=== PATIENT | female | born 1955 | race African-American/Black ===

== ENCOUNTER 2017-04-23 09:26 | Inpatient (IN) | payer BC ==
[2017-04-23] MEDS ORDERED: MORPHINE SULFATE INJ 4 MG IVP ONE ×3 (09:30→12:14)
[2017-04-23] MEDS ORDERED: MORPHINE SULFATE INJ 4 MG ONE ×3 (09:35→12:12)
[2017-04-23 09:37] VITALS: BMI 23.1
[2017-04-23] MEDS ORDERED: ZOFRAN INJ 4 MG VIAL ONE (09:44)
[2017-04-23] MEDS ORDERED: ZOFRAN INJ 4 MG VIAL IVP ONE (09:45)
[2017-04-23 09:51] LABS: BASOPHILS # (AUTO) 0.1 X10^3/uL (0.0-0.1); BASOPHILS % (AUTO) 2.8 % (0.2-1.0); HEMOGLOBIN 12.1 g/dL (12.0-16.0); LYMPHOCYTES # (AUTO) 2.2 X10^3/uL (1.3-2.9); LYMPHOCYTES % (AUTO) 65.3 % (21.0-51.0); MEAN CORPUSCULAR HEMOGLOBIN 27.9 pg (27.0-34.0); MEAN CORPUSCULAR HGB CONC 33.5 g/dL (33.0-35.0); MEAN CORPUSCULAR VOLUME 83.4 fL (80.0-100.0); MONOCYTES # (AUTO) 0.2 x10^3/uL (0.3-0.8); MONOCYTES % (AUTO) 6.8 % (0.0-13.0); NEUTROPHILS # (AUTO) 0.8 x10^3/uL (2.2-4.8); NEUTROPHILS % (AUTO) 24.1 % (42.0-75.0); PLATELET COUNT 280 X10^3/uL (150.0-450.0); RED BLOOD COUNT 4.32 X10^6/uL (3.5-5.4); WHITE BLOOD COUNT 3.3 X10^3/uL (3.6-10.0)
--- NOTE | 2017-04-23 09:56 | DR.CP ---
HPI - Time Seen Time seen: 09:30 - PCP Primary Care Physician: JOSE - Complaint Chief Complaint Doctor Comments: Patient admits to midsternal chest pain radiating to back. Denies diaphroesis. She has taken four nitroglyerines w/o relief. She had cardiac surgery (stents) x1 in and . She admits to costochrondritis for for several years. Chief Complaint:: CHEST PAIN FOR 45MIN HURTING IN CHEST AND ARMS ARE TINGLING - Source History Provided: Patient - Mode of Arrival Mode of Arrival: Ambulatory - Timing Onset of Chief Complaint: 04/23/17 PMH - PMH Past Medical History: Yes Past Medical History Comment: HEART ATTACH Past Surgical History: Yes Surgical History: Other - Family History History of Family Medical Conditions: Yes Family Medical History: Diabetes Mellitus, Cancer, [place], Coronary Artery Disease, Hypertension - Social History Does patient currently use any type of tobacco product: No Have you used tobacco products in the last 12 months: No Type of Tobacco Use: None Does any household member use tobacco: No Alcohol Use: None Do you use any recreational Drugs:: No Lives With: Family Lives Where: Home - infectious screening In the last 2 months have you had wt loss of >10#?: NO Have you had fever, night sweats or hemotysis?: No Have you traveled outside the country in the last 6 months?: No Isolation: Standard ROS - Review of Systems Constitutional: negative: Diaphoresis Eyes: No Symptoms Reported ENTM: No Symptoms Reported Respiratoy: No Symptoms Reported Cardiovascular: See HPI, Chest Pain Gastrointestinal/Abdominal: No Symptoms Reported Genitourinary: No Symptoms Reported Neurological: No Symptoms Reported Musculoskeletal: See HPI, Other (costochrondritis) Integumentary: No Symptoms Reported Hematologic/Lymphatic: No Symptoms Reported Endocrine: No Symptoms Reported Psychiatric: No Symptoms Reported All Other Systems: Reviewed and Negative PE - Vitals Vitals: Temperature 98 F Pulse Rate [Left Brachial] 63 Pulse Rate 60 Respiratory Rate 20 Blood Pressure [Right Arm] 117/68 Blood Pressure [Left Arm] 155/91 Blood Pressure 132/77 O2 Sat by Pulse Oximetry 100 - General Limitations: No Limitations General Appearance: Alert, In Distress, Other (She sharp,pleuretic and positional chest pain) - Head Head Exam: Normal Inspection, Atraumatic - Eyes Eye exam: Normal Appearance, PERRL, EOMI - ENT ENT Exam: Normal Exam - Chest Chest Inspection: Normal Inspection, Symmetric Chest Wall Rise - Respiratory Respiratory Exam: Normal Lung Sounds Bilat Respiratory Exam: Bilateral Clear to Auscultation - Cardiovascular Cardiovascular Exam: Regular Rate, Normal Rhythm Pulse: Normal Edema: negative: Normal - Abdominal Exam Abdominal Exam: Normal Inspection Abdominal Tenderness: negative: RUQ, RLQ, LUQ, LLQ, Epigastrium, Suprapubic, Diffuse, Mild, Moderate, Severe, Other - Extremities Extremities Exam: Normal Inspection, Full ROM - Back Back Exam: Normal Inspection, Full ROM - Neurologic Neurological Exam: Alert, Oriented X3, CN II-XII Intact - Psychiatric Psychiatric Exam: Normal Affect, Normal Mood - Skin Skin Exam: Warm, Dry, Intact Course - Reevaluation 1st: Unchanged - Consultation Called: 15:40 (Admit Chest Pain R/O) ROR - Labs Reviewed Result Diagrams: 04/23/17 09:40 04/23/17 10:02 Laboratory: WBC 3.3 X10^3/uL (3.6-10.0) L 04/23/17 09:40 RBC 4.32 X10^6/uL (3.5-5.4) 04/23/17 09:40 Hgb 12.1 g/dL (12.0-16.0) 04/23/17 09:40 Hct 36.0 % (36.0-47.0) 04/23/17 09:40 MCV 83.4 fL (80.0-100.0) 04/23/17 09:40 MCH 27.9 pg (27.0-34.0) 04/23/17 09:40 MCHC 33.5 g/dL (33.0-35.0) 04/23/17 09:40 RDW 14.0 % (11.6-16.5) 04/23/17 09:40 Plt Count 280 X10^3/uL (150.0-450.0) 04/23/17 09:40 Plt Count Comment Adequate (ADEQUATE) 04/23/17 09:40 MPV 9.0 fL (7.4-11.0) 04/23/17 09:40 Neut % 24.1 % (42.0-75.0) L 04/23/17 09:40 Lymph % 65.3 % (21.0-51.0) H 04/23/17 09:40 Nye % 6.8 % (0.0-13.0) 04/23/17 09:40 Eos % 1.0 % (0.9-2.9) 04/23/17 09:40 Baso % 2.8 % (0.2-1.0) H 04/23/17 09:40 Neut # 0.8 x10^3/uL (2.2-4.8) L 04/23/17 09:40 Lymph # 2.2 X10^3/uL (1.3-2.9) 04/23/17 09:40 Nye # 0.2 x10^3/uL (0.3-0.8) L 04/23/17 09:40 Eos # 0.0 x10^3/uL (0.0-0.2) 04/23/17 09:40 Baso # 0.1 X10^3/uL (0.0-0.1) 04/23/17 09:40 Absolute Nucleated RBC 0.2 /100WBC 04/23/17 09:40 Total Counted 100 04/23/17 09:40 Neutrophils % (Manual) 30 % (39-76) L 04/23/17 09:40 Lymphocytes % (Manual) 59 % (13-43) H 04/23/17 09:40 Monocytes % (Manual) 5 % (4-9) 04/23/17 09:40 Eosinophils % (Manual) 1 % (0-6) 04/23/17 09:40 Atypical Lymphocytes 5 04/23/17 09:40 Plt Morphology Comment Normal (NORMAL) 04/23/17 09:40 RBC Morphology Normal (NORMAL) 04/23/17 09:40 INR Target Range - 04/23/17 10:02 INR 0.97 (0.8-1.3) 04/23/17 10:02 PTT 24.1 SECONDS (22.9-36.5) 04/23/17 10:02 PTT Comment - 04/23/17 10:02 Sodium 144 mmol/L (136-145) 04/23/17 10:02 Corrected Sodium TNP 04/23/17 10:02 Potassium 3.9 mmol/L (3.5-5.1) 04/23/17 10:02 Chloride 107 mmol/L (98-107) 04/23/17 10:02 Carbon Dioxide 29.5 mmol/L (21-32) 04/23/17 10:02 BUN 9 mg/dL (7-18) 04/23/17 10:02 Creatinine 0.80 mg/dL (0.55-1.02) 04/23/17 10:02 Est GFR (MDRD) Af Amer > 60 (>60) 04/23/17 10:02 Est GFR (MDRD) Non-Af > 60 (>60) 04/23/17 10:02 Glucose 108 mg/dL (65-99) H 04/23/17 10:02 Calcium 8.8 mg/dL (8.5-10.1) 04/23/17 10:02 Corrected Calcium TNP 04/23/17 10:02 Phosphorus 2.4 mg/dL (2.6-4.7) L 04/23/17 10:02 Magnesium 1.7 mg/dL (1.7-2.9) 04/23/17 10:02 Total Bilirubin 0.20 mg/dL (0.2-1.0) 04/23/17 10:02 AST 22 Units/L (15-37) 04/23/17 10:02 ALT 23 Units/L (12-78) 04/23/17 10:02 Alkaline Phosphatase 56 Units/L (46-116) 04/23/17 10:02 Creatine Kinase 68 Units/L (26-192) 04/23/17 10:02 CK-MB (CK-2) < 1.0 ng/mL (0-4.0) 04/23/17 10:02 CK/CKMB % Calc 1.5 % (<4) 04/23/17 10:02 Troponin I < 0.02 ng/mL (0-1.5) 04/23/17 10:02 Total Protein 7.4 g/dL (6.4-8.2) 04/23/17 10:02 Albumin 3.4 g/dL (3.4-5.0) 04/23/17 10:02 Globulin 4.0 g/dL (2.5-4.5) 04/23/17 10:02 Albumin/Globulin Ratio 0.9 Ratio (1.1-2.1) L 04/23/17 10:02 Amylase 135 Units/L (25-115) H 04/23/17 10:02 Lipase 412 Units/L (73-393) H 04/23/17 10:02 - XRAY XRAY Interpreted by: Radiologist (Chest: stable chest w/o abnormality CT abdomen pelvis w/contrast:Examination of the lung bases demonstrates a 1.05cm anterior right lowerr lobe pulmonary nodule for which further evaluation with chest CT is recommended. If this proves to be a solitary pulmonary nodule then PET-CT will be required in order to exclude neoplasm. The lift lung base is clear. Liver, spleen,adrenal glands and pancreas are within normal limits. No opaque stones are visible within the gallbladder. The kidneys are unobstructed and without stones or masses. No ureteral calculi are identified. Mild calcific atherosclerotic change is present in a nondilated abdominal aorta. The appendix is normal. There are no findings suggestive of diverticulitis or colitis. No enlarged intraperitoneal or retroperitoneal lymphadenopathy is identified. Examination of the pelvic demonstrated no evidence for pelvic masses, pelvic fluid, or pelvic lymphadenopathy. No bladder abnormality is identified. No significant skeletal abnormality is identified. Impression: 1.05 cm right basilar pulmonary nodule for which chest CT is recommended. If this proves to be a solitary pulmonary nodule then PET-CT will be indicated in order to exclude neoplasm.) - Diagnosis Discharge Problem: Chest pain Qualifiers: Chest pain type: unspecified Qualified Code(s): R07.9 - Chest pain, unspecified - Discharge Plan Condition: Stable - Follow ups/Referrals Follow ups/Referrals: Manish Guerrero [Primary Care Provider] - 3 days - Instructions
[2017-04-23 10:21] LABS: MAGNESIUM 1.7 mg/dL (1.7-2.9); PHOSPHORUS 2.4 mg/dL (2.6-4.7)
--- NOTE | 2017-04-23 10:21 | RAD ---
HISTORY: Pain Study: Portable chess Comparison: 01/21/2015 Findings: The heart is normal. The pulmonary vessels are normal. No consolidation or effusion is seen. The bon es are intact. IMPRESSION: Stable chest with no acute abnormality seen. Reported By:
[2017-04-23 10:28] LABS: PLATELET MORPHOLOGY COMMENT NORMAL (NORMAL)
[2017-04-23 10:29] LABS: BLOOD UREA NITROGEN 9 mg/dL (7-18); CALCIUM 8.8 mg/dL (8.5-10.1); CARBON DIOXIDE 29.5 mmol/L (21-32); CHLORIDE 107 mmol/L (98-107); GLUCOSE 108 mg/dL (65-99); SODIUM 144 mmol/L (136-145); TROPONIN I < 0.02 ng/mL (0-1.5); eGFR BLACK RACES > 60 (>60); eGFR NON BLACK RACES > 60 (>60)
[2017-04-23 10:34] LABS: ALANINE AMINOTRANSFERASE 23 Units/L (12-78); ALBUMIN 3.4 g/dL (3.4-5.0); ALKALINE PHOSPHATASE 56 Units/L (46-116); ASPARTATE AMINO TRANSFERASE 22 Units/L (15-37); CKMB % 1.5 % (<4); CREATINE KINASE 68 Units/L (26-192); CREATINE KINASE MB < 1.0 ng/mL (0-4.0); TOTAL PROTEIN 7.4 g/dL (6.4-8.2)
[2017-04-23 10:36] LABS: AMYLASE 135 Units/L (25-115); LIPASE 412 Units/L (73-393)
[2017-04-23] MEDS ORDERED: NS 100 ML IV + SPIKE MINIBAG* 100 ML IV ONE (11:27)
[2017-04-23] MEDS ORDERED: NS 100 ML IV 100 ML IV ONE (11:48)
--- NOTE | 2017-04-23 12:43 | CT ---
HISTORY: Chest pain radiating to back Study: CT abdomen pelvis with contrast Comparison: none Technique : Axial post-contrast images with coronal and sagittal reformats. Dose reduction procedure s were used with MA/kv adjusted for body size. Findings: Examination of the lung bases demonstrates a 1.05 centimeter anterior right lower lobe pulmonary nod ule for which further evaluation with chest CT is recommended. If this proves to be a solitary pulmo nary nodule then PET-CT will be required in order to exclude neoplasm. The left lung base is clear. Liver, spleen, adrenal glands, and pancreas are within normal limits. No opaque stones are visible w ithin the gallbladder. The kidneys are unobstructed and without stones or masses. No ureteral calcul i are identified. Mild calcific atherosclerotic change is present in a nondilated abdominal aorta. T he appendix is normal. There are no findings suggestive of diverticulitis or colitis. No enlarged in traperitoneal or retroperitoneal lymphadenopathy is identified. Examination of the pelvis demonstrat ed no evidence for pelvic masses, pelvic fluid, or pelvic lymphadenopathy. No bladder abnormality is identified. No significant skeletal abnormality is identified. IMPRESSION: No evidence for significant intra-abdominal or intrapelvic abnormality 1.05 centimeter right basilar pulmonary nodule for which chest CT is recommended. If this proves to be a solitary pulmonary nodule then PET-CT will be indicated in order to exclude neoplasm. Reported By:
[2017-04-23] MEDS: NS 1000 ML 1,000 ML IV SCH ×2 (13:10→18:15)
--- NOTE | 2017-04-23 13:47 | CT ---
HISTORY: pain and pulmonary nodule Study: CT chest without contrast Comparison: CT abdomen and pelvis same day Technique: Multiple axial images of the chest were obtained from the thoracic inlet to the upper abd omen without administration of IV contrast. Automated dose control was used. Findings: The thyroid gland is unremarkable. There is mild calcified plaque throughout the aorta with no aneur ysm seen . There are mild to moderate coronary artery calcifications. There are small calcified lymp h nodes along the left hilar region and AP window . There are small precarinal lymph nodes measuring up to 1 cm. The adrenals are normal the visualized upper abdomen is unremarkable . There is mild li near scarring along the right apex posteriorly. There is a 12 x 10 mm nodule in the right middle lob e medially which is well circumscribed and noncalcified with no spiculation. No effusion is seen. Th ere is no consolidation or effusion. No other nodules are seen. Mild degenerative changes are seen t hroughout the spine with no aggressive osseous lesion. IMPRESSION: 12 mm nodule in the right middle lobe which could represent a noncalcified granuloma or small neopla sm , but remains indeterminate. Recommend PET scan correlation. Small lymph nodes along the AP window measuring up to 10 mm. Suggest PET scan correlation. Old healed granulomatous disease along the mediastinum and left hilar region. Mild to moderate Coronary artery calcifications, suggest cardiology follow-up. Reported By:
[2017-04-23] MEDS ORDERED: MORPHINE SULFATE INJ 2 MG IVP ONE (15:09)
[2017-04-23] MEDS ORDERED: MORPHINE SULFATE INJ 2 MG ONE (15:11)
[2017-04-23] MEDS ORDERED: NITROGLYCERIN IV PREMIX 50 MG 50 MG/250 ML BAG IV PRN (15:11)
[2017-04-23] MEDS ORDERED: MORPHINE SULFATE INJ 2 MG IVP PRN (15:50)
[2017-04-23 17:06] LABS: CKMB % 5.9 % (<4); TROPONIN I 0.98 ng/mL (0-1.5)
[2017-04-23 17:10] LABS: CREATINE KINASE MB 8.3 ng/mL (0-4.0)
[2017-04-23] MEDS ORDERED: ZOFRAN INJ 4 MG VIAL IVP PRN (17:14)
[2017-04-23 19:27] LABS: APPEARANCE,URINE CLEAR (CLEAR); BLOOD/HEMOGLOBIN,URINE NEGATIVE (NEGATIVE); COLOR,URINE YELLOW (YELLOW); GLUCOSE, URINE NEGATIVE (NEGATIVE); KETONES,URINE NEGATIVE (NEGATIVE); NITRITES,URINE NEGATIVE (NEGATIVE); PROTEIN,URINE NEGATIVE (NEGATIVE)
[2017-04-23 19:28] LABS: BACTERIA,URINE NEGATIVE /HPF (NEGATIVE); BILIRUBIN,URINE NEGATIVE (NEGATIVE); LEUKOCYTE ESTERASE ,URINE NEGATIVE (NEGATIVE); RBC,URINE NEGATIVE /HPF (NEGATIVE); SQUAMOUS EPITHELIAL CELL,UR RARE /HPF (NEGATIVE); UROBILINOGEN,URINE NORMAL (NORMAL)
[2017-04-23] MEDS ORDERED: ZESTRIL TAB 5 MG PO SCH (21:00)
[2017-04-23] MEDS ORDERED: PATIENT'S HOME MEDICATION (Atorvastatin Calcium [Lipitor] 80 MG) PO SCH (21:00)
[2017-04-23] MEDS ORDERED: LIPITOR TAB 40 MG PO SCH (21:00)
[2017-04-23] MEDS ORDERED: NITROSTAT SL PRN (22:56)
[2017-04-23 23:02] LABS: CKMB % 13.2 % (<4)
[2017-04-23 23:04] LABS: TROPONIN I 5.91 ng/mL (0-1.5)
[2017-04-24] MEDS ORDERED: HEPARIN SODIUM IN D5W 25,000 UNITS/500 ML BAG IV ONE (00:31)
[2017-04-24] MEDS ORDERED: ZOFRAN INJ 4 MG VIAL IVP PRN (00:41)
[2017-04-24] MEDS ORDERED: MORPHINE SULFATE INJ 2 MG IVP PRN (00:41)
[2017-04-24] MEDS ORDERED: HEPARIN SODIUM INJ 5000 UNITS ONE (01:04)
[2017-04-24] MEDS ORDERED: HEPARIN SODIUM INJ 5000 UNITS IVP ONE (01:06)
[2017-04-24] MEDS: HEPARIN SODIUM IN D5W 25,000 UNITS/500 ML BAG IV PRN ×2 (01:10→01:15)
[2017-04-24] MEDS: NITRO-BID OINT 2% Multi-Dose tube TD SCH ×2 (02:00→08:27)
[2017-04-24] MEDS ORDERED: NS 1000 ML 1,000 ML IV SCH (02:00)
[2017-04-24 05:00] LABS: BASOPHILS # (AUTO) 0.1 X10^3/uL (0.0-0.1); EOSINOPHILS % (AUTO) 0.2 % (0.9-2.9); HEMATOCRIT 31.5 % (36.0-47.0); HEMOGLOBIN 10.5 g/dL (12.0-16.0); LYMPHOCYTES # (AUTO) 1.9 X10^3/uL (1.3-2.9); LYMPHOCYTES % (AUTO) 33.5 % (21.0-51.0); MEAN CORPUSCULAR HEMOGLOBIN 27.9 pg (27.0-34.0); MEAN CORPUSCULAR HGB CONC 33.3 g/dL (33.0-35.0); MEAN CORPUSCULAR VOLUME 83.7 fL (80.0-100.0); MEAN PLATELET VOLUME 8.5 fL (7.4-11.0); MONOCYTES # (AUTO) 0.3 x10^3/uL (0.3-0.8); MONOCYTES % (AUTO) 5.6 % (0.0-13.0); NEUTROPHILS # (AUTO) 3.3 x10^3/uL (2.2-4.8); NEUTROPHILS % (AUTO) 59.7 % (42.0-75.0); PLATELET COUNT 198 X10^3/uL (150.0-450.0); RED BLOOD COUNT 3.76 X10^6/uL (3.5-5.4); RED CELL DISTRIBUTION WIDTH 13.6 % (11.6-16.5); WHITE BLOOD COUNT 5.6 X10^3/uL (3.6-10.0)
[2017-04-24 05:08] LABS: ALANINE AMINOTRANSFERASE 24 Units/L (12-78); ALKALINE PHOSPHATASE 48 Units/L (46-116); ASPARTATE AMINO TRANSFERASE 79 Units/L (15-37); BLOOD UREA NITROGEN 8 mg/dL (7-18); CALCIUM 8.1 mg/dL (8.5-10.1); CHLORIDE 106 mmol/L (98-107); CHOL/HDL RATIO 2.8 (0.0-5.0); CHOLESTEROL 167 mg/dL (0-200); COR CA(FOR HYPOALB) 8.9 mg/dL (8.5-10.1); CREATININE 0.68 mg/dL (0.55-1.02); GLUCOSE 98 mg/dL (65-99); HDL CHOLESTEROL 60 mg/dL (40-60); SODIUM 141 mmol/L (136-145); TOTAL PROTEIN 6.6 g/dL (6.4-8.2); TRIGLYCERIDES 34 mg/dL (0-150); eGFR BLACK RACES > 60 (>60); eGFR NON BLACK RACES > 60 (>60)
[2017-04-24 05:14] LABS: AMYLASE 67 Units/L (25-115); LIPASE 80 Units/L (73-393)
[2017-04-24 05:55] LABS: CREATINE KINASE MB 95.4 ng/mL (0-4.0)
[2017-04-24 05:56] LABS: TROPONIN I 16.54 ng/mL (0-1.5)
--- NOTE | 2017-04-24 06:32 | RAD ---
HISTORY: Chest pain and shortness of breath Study: Portable chest Comparison: Yesterday Findings: The trachea is midline. The cardiac silhouette is normal with a moderately tortuous aorta.. The zakia ngs are clear without focal infiltrate or effusion. The bony thorax is unremarkable. IMPRESSION: 1. No acute cardiopulmonary disease. Reported By:
[2017-04-24] MEDS: LOPRESSOR TAB 25 MG PO SCH (08:26)
[2017-04-24] MEDS ORDERED: EPTIFIBATIDE ONE (08:58)
[2017-04-24] MEDS ORDERED: ASPIRIN EC 81 MG PO SCH ×2 (09:00)
[2017-04-24] MEDS ORDERED: PLAVIX PO SCH ×2 (09:00)
[2017-04-24] MEDS ORDERED: LOPRESSOR TAB 25 MG PO SCH (09:00)
[2017-04-24] MEDS ORDERED: PROTONIX INJ 40 MG VIAL IVP SCH ×2 (09:00)
[2017-04-24] MEDS ORDERED: EPTIFIBATIDE IV ONE (09:01)
[2017-04-24] MEDS ORDERED: EPTIFIBATIDE IV PRN ×2 (09:02→09:08)
--- NOTE | 2017-04-24 10:03 | DR.CARTERS ---
Short Stay Summary - Admission Date Date of Admission: 04/23/17 - Discharge Date Discharge Date: 04/24/17 - Admission Diagnoses (1) Chest pain Status: Acute - Hospital Course Hospital Course: IS A 61 YEAR OLD PATIENT OF OURS WHO PRESENTED TO THE EMERGENCY ROOM WITH COMPLAINTS OF MIDSTERNAL CHEST PAIN THAT RADIATED TO THE BACK. SHE REPORTED THAT CHEST PAIN WAS ONSET 45 MINUTES PRIOR TO ARRIVING AT ER. SHE REPORTED TINGLING IN CHEST AND ARMS, BUT DENIES DIAPHORESIS. PATIENT STATED THAT SHE HAD CARDIAC STENTS PLACED IN 2006 AND 2011 AT [facility] IN [place]. SHE ALSO REPORTS COSTOCHONDRITIS FOR SEVERAL YEARS. LABS AND XRAYS WERE OBTAINED. CBC WNL EXCEPT WBC 3.3. CMP WNL EXCEPT GLUCOSE 108, PHOSPHORUS 2.4, AMYLASE 135, LIPASE 412. CARDIAC ENZYMES WNL. EKG REPORTED SINUS RHYTHM, ACUTE LEFT INTERIOR INFARCT. CHEST XRAY NEGATIVE FOR ACUTE ABNORMALITY. ABD/ PELVIS CT OBTAINED AND REPORTED NEGATIVE FOR ACUTE ABNORMALITY, WITH COINCIDENTAL FINDINGS OF 1.05 CENTIMETER RIGHT BASILAR PULMONARY NODULE. CHEST CT OBTAINED AND REPORTED 12MM NODULE IN THE RIGHT MIDDLE LOBE, SMALL LYMPH NODES ALONG THE AP WINDOW, MILD TO MODERATE CORONARY ARTERY CALCIFICATIONS. ER PHYSICIAN ATTEMPTED TO TRANSFER PATIENT TO [facility] IN [place] WITH NO SUCCESS. PATIENT WAS ADMITTED FOR FURTHER TREATMENT AND EVALUATION. SHE WAS STARTED ON NS @125 ML/HR, MORPHINE SULFATE 2MG IV Q2H PRN PAIN, ZOFRAN 4MG IVP Q6H PRN PAIN, ASPIRIN 81 MG PO DAILY, AND OXYGEN. ORDERS WERE GIVEN TO CHECK SERIAL CARDIAC ENZYMES AND EKGS. SECOND CARDIAC ENZYMES REPORTED CREATININE KINASE 142, CK-MB 8.3, TROPONIN 0.98. THIRD SET REPORTED CREATININE KINASE 326, CK-MB 43, TROPONIN 5.91. ORDERS WERE GIVEN TO TRANSFER PATIENT TO ICU AND START ON HEPARIN DRIP AND APPLY NITRO PASTE TO CHEST WALL. PATIENT CONTINUED WITH CHEST PAIN AT THAT TIME. VITALS WERE 97.3-69-16-99%-122/79 UPON ARRIVAL TO UNIT. ON MORNING ROUNDS, PATIENT IS ALERT AND ORIENTED. SHE CONTINUES WITH COMPLAINTS OF MIDSTERNAL CHEST PAIN, BUT DENIES SHORTNESS OF BREATH OR DIAPHORESIS. VITALS THIS AM WERE 98.0-71-25-97%-90/67. CBC WNL EXCEPT HGB 10.5, HCT 31.5. PTT 102.0. CMP WNL EXCEPT CALCIUM 8.1, AST 79, ALBUMIN 3.0. CHEST XRAY NEGATIVE FOR ACUTE ABNORMALITY. MOST CURRENT EKG REPORTED SINUS RHYTHM WITH RATE OF 58, INFERIOR INFARCT, AGE INDETERMINATE. SHE CONTINUED WITH SUPPLEMENTAL OXYGEN. WE SPOKE WITH AT [place], [place]. HE ACCEPTED PATIENT FOR HEART CATH. PATIENT TRANSFERRED VIA EMS IN STABLE CONDITION. - Discharge Medications Discharge Medications: Cholecalciferol (Vitamin D3) [Natural Vitamin D-3] 5,000 unit PO BID 04/23/17 [ History] Metoprolol Tartrate 12.5 mg PO BID 04/23/17 [History] Tramadol HCl [ULTRAM 50 MG *] 50 mg PO BID PRN 04/23/17 [History] - Discharge Plan Disposition: 02 XFER [facility] HOSP Condition: Stable - Follow up/Referrals Follow up/Referrals: Manish Guerrero [Primary Care Provider] - 3 days - Instructions Instructions: Chest Pain Observation Additional Instructions: TRANSFER TO [facility]/STAFF MIDWIFE TO [facility] FOR HEART CATH
[2017-04-24 12:16] VITALS: BP 104/64
[2017-04-24] MEDS ORDERED: ZESTRIL TAB 5 MG PO SCH (21:00)
[2017-04-24] MEDS ORDERED: LIPITOR TAB 40 MG PO SCH (21:00)
== END 2017-04-24 10:31 | disposition short-term general hospital (02) | DRG 313 ==
LOC: ER 09:26 → MED/SURG 15:49 → OBSVTOIN 04-24 00:24 → ICU 04-24 00:50
PROVIDERS: ADMIT Obstetrics & Gynecology Obstetrics; ATTEND Internal Medicine
DX: R07.89 Other chest pain (principal); R94.31 Abnormal electrocardiogram [ECG] [EKG]; M94.0 Chondrocostal junction syndrome [Tietze]; R94.30 Abnormal result of cardiovascular function study, unspecified; Z79.01 Long term (current) use of anticoagulants
CPT/HCPCS: 36415; 71010; 71250; 74177; 80053; 80061; 81001; 82150; 82550; 82553; 83690; 83735; 84100; 84484; 85025; 85610; 85730; 93005; 94760; 96365; 96367; 96374; 96375; 99284; A4216; A4222; C9113; G0378; J1327; J1644; J2270; J2405